=== PATIENT | female | born 1985 | race Two or more races ===

== ENCOUNTER 2021-09-25 11:45 | Emergency (ER) | payer OTHER ==
[2021-09-25 12:08] LABS: HCG,QUALITATIVE URINE Negative
[2021-09-25 12:10] LABS: EPITHELIAL CELLS FEW /hpf
[2021-09-25 12:13] VITALS: TEMP 98.5; BMI 28.0
[2021-09-25] MEDS ORDERED: IBUPROFEN 600 MG TABLET (FP) PO ONE ×2 (12:40→12:45)
[2021-09-25 13:19] LABS: HEMATOCRIT 37.7 % (32.4-45.2); HEMOGLOBIN 13.2 G/dL (10.7-15.3); MCH 29.7 pg (25.7-33.7); MCHC 34.9 g/dl (32.0-36.0); MEAN CELL VOLUME 85.1 fl (80-96); MEAN PLT VOLUME 8.3 fl (7.5-11.1); PLATELET COUNT 247.5 10^3/uL (134-434); RBC 4.43 10^6/uL (3.60-5.2); RDW 14.4 % (11.6-15.6); WHITE BLOOD COUNT 6.3 10^3/uL (4.0-10.8)
[2021-09-25 13:26] LABS: ALBUMIN 4.1 g/dl (3.4-5.0); ALK PHOS 53 U/L (45-117); ANION GAP 8 MMOL/L (8-16); BILIRUBIN,TOTAL 1.1 mg/dl (0.2-1); CHLORIDE 102 mmol/L (98-107); CO2 26 mmol/L (21-32); CREATININE 0.5 mg/dl (0.55-1.3); GLUCOSE,RANDOM 92 mg/dl (74-106); SGOT/AST 26 U/L (15-37); SGPT/ALT 45 U/L (13-61); SODIUM 136 mmol/L (136-145); TOT PROT 7.1 g/dl (6.4-8.2)
[2021-09-25 13:51] VITALS: BP 111/73; PULSE 65
== END 2021-09-25 14:00 | disposition home or self-care (01) ==
LOC: FER 11:45
DX: R07.9 Chest pain, unspecified (principal)
CPT/HCPCS: 36415; 80053; 81003; 81015; 84484; 84703; 85025; 93005; 99284-25